=== PATIENT | male | born 1980 | race Caucasian/White ===

== ENCOUNTER 2018-10-11 15:18 | Emergency (ER) | payer BC, OTHER ==
[2018-10-11 15:25] VITALS: RESP 20
[2018-10-11] MEDS ORDERED: SODIUM CHLORIDE 0.9% 1000ML 1,000 ML IV ONE (15:48)
[2018-10-11] MEDS ORDERED: KETOROLAC TROMETHAMINE 30 MG/ML SOL IV ONE (15:48)
[2018-10-11] MEDS ORDERED: ACETAMINOPHEN 325 MG PO ONE (15:49)
[2018-10-11] MEDS ORDERED: KETOROLAC TROMETHAMINE 30 MG/ML SOL ONE (15:53)
[2018-10-11] MEDS ORDERED: ACETAMINOPHEN 325 MG ONE ×2 (15:53→16:10)
[2018-10-11] MEDS ORDERED: ONDANSETRON HCL 4 MG/2 ML SOL IV ONE (15:57)
[2018-10-11 16:06] LABS: INFLUENZA A POSITIVE (NEGATIVE); INFLUENZA B NEGATIVE (NEGATIVE)
[2018-10-11] MEDS ORDERED: ONDANSETRON HCL 4 MG/2 ML SOL ONE (16:14)
[2018-10-11 18:04] VITALS: BP 113/50; PULSE 78; TEMP 99; O2SAT 92
== END 2018-10-11 17:13 | disposition home or self-care (01) ==
LOC: ED 15:18
DX: J09.X2 Influenza due to identified novel influenza A virus with other respiratory manifestations (principal)
CPT/HCPCS: 87804; 96365; 96374; 96375; 99282; 99284; J1885; J2405